=== PATIENT | female | born 1935 | race Caucasian/White ===

== ENCOUNTER 2019-04-22 16:56 | Emergency (ER) | payer MEDICARE, OTHER ==
[2019-04-22] MEDS ORDERED: LORazepam 2 MG/ML SDV IVPUSH ONE (17:24)
[2019-04-22] MEDS ORDERED: Sodium Chloride 0.9% 10 ML Syringe FLUSH PRN (17:24)
--- NOTE | 2019-04-22 17:47 | EDM.PDOC ---
ED HPI GENERAL MEDICAL PROBLEM - General Chief Complaint: Upper Extremity Injury/Pain Stated Complaint: FALL Time Seen by Provider: 04/22/19 17:10 Source of Information: Reports: Patient History Limitations: Reports: No Limitations - History of Present Illness INITIAL COMMENTS - FREE TEXT/NARRATIVE: 84 YO WF presents to ER after trip and fall today while coming out of [employer]. Pt reports she caught her foot on threshold of door and stumbled falling forward. Pt reports putting her right arm out to break her fall and complains of right shoulder and upper arm pain. Pt fell and struck her face on the ground. Pt complaining of pain to nose with mild controlled epistasis. Pt denies any head or neck pain. Pt denies any facial pain other than her nose which she states feels swollen. Pt denies any loss of consciousness, no shortness of breath, no chest pain and no nausea/vomiting or diaphoresis. Onset: Today Location: Reports: Face, Upper Extremity, Right Quality: Reports: Ache Severity: Moderate Improves with: Reports: Rest Worsens with: Reports: Movement Associated Symptoms: Reports: No Other Symptoms. Denies: Diaphoresis, Headaches , Nausea/Vomiting, Shortness of Breath, Weakness right arm Pain Score (Numeric/FACES): 5 - Related Data Allergies Allergy/AdvReac Type Severity Reaction Status Date / Time Penicillins Allergy Rash Verified 04/22/19 17:23 Sulfa (Sulfonamide Allergy Nausea Verified 04/22/19 17:23 Antibiotics) Home Meds: Home Meds Dipyridamole 75 mg PO DAILY 04/22/19 [History] Levothyroxine Sodium [Synthroid] 25 mcg PO ACBREAKFAST 04/22/19 [History] Lisinopril [Zestril] 40 mg PO DAILY 04/22/19 [History] Metoprolol Tartrate [Lopressor] 50 mg PO BID 04/22/19 [History] Mirtazapine 15 mg PO BEDTIME 04/22/19 [History] atorvaSTATin Calcium [Atorvastatin Calcium] 10 mg PO DAILY 04/22/19 [History] traMADol [Ultram] 50 mg PO Q6H PRN 04/22/19 [History] Review of Systems - Review of Systems Review Of Systems: See Below Constitutional: Reports: No Symptoms Eyes: Reports: No Symptoms Ears: Reports: No Symptoms Nose: Reports: Epistaxis, Pain. Denies: Clots Mouth/Throat: Reports: No Symptoms Respiratory: Reports: No Symptoms Cardiovascular: Reports: No Symptoms GI/Abdominal: Reports: No Symptoms Genitourinary: Reports: No Symptoms Musculoskeletal: Reports: Shoulder Pain Skin: Reports: No Symptoms Neurological: Reports: No Symptoms Psychiatric: Reports: No Symptoms ED EXAM, GENERAL - Physical Exam Exam: See Below Exam Limited By: No Limitations General Appearance: Alert, WD/WN, No Apparent Distress Eye Exam: Bilateral Eye: EOMI, PERRL Ears: Normal External Exam, Normal Canal, Hearing Grossly Normal, Normal TMs Ear Exam: Bilateral Ear: Auricle Normal, Canal Normal, TM normal Nose: Normal Mucosa, Other (dried blood in nares without evidence of a septal hematoma) Throat/Mouth: Normal Inspection, Normal Lips, Normal Teeth, Normal Gums, Normal Oropharynx, Normal Voice, No Airway Compromise Head: Atraumatic, Normocephalic Neck: Normal Inspection, Supple, Non-Tender, Full Range of Motion Respiratory/Chest: No Respiratory Distress, Lungs Clear, Normal Breath Sounds, No Accessory Muscle Use, Chest Non-Tender Cardiovascular: Normal Peripheral Pulses, Regular Rate, Rhythm, No Edema, No Gallop, No JVD, No Murmur, No Rub GI/Abdominal: Normal Bowel Sounds, Soft, Non-Tender, No Organomegaly, No Distention, No Abnormal Bruit, No Mass Back Exam: Normal Inspection, Full Range of Motion, NT Extremities: No Pedal Edema, Normal Capillary Refill, Limited Range of Motion, Other (pain with PROM. Swelling to right humeral head) Neurological: Alert, Oriented, CN II-XII Intact, Normal Cognition, Normal Gait, Normal Reflexes, No Motor/Sensory Deficits Psychiatric: Normal Affect, Normal Mood Skin Exam: Warm, Dry, Intact, Normal Color, No Rash Lymphatic: No Adenopathy Course - Vital Signs Last Recorded V/S: Last Vital Signs Temp 36.5 C 04/22/19 17:00 Pulse 88 04/22/19 17:00 Resp 16 04/22/19 17:00 BP 162/76 H 04/22/19 18:10 Pulse Ox 95 04/22/19 17:00 - Orders/Labs/Meds Orders: Active Orders 24 hr Category Date Time Status Peripheral IV Care [RC] . DIRECTED Care 04/22/19 17:24 Active Splinting [RC] ASDIRECTED Care 04/22/19 18:24 Ordered Shoulder 1V Rt [CR] Stat Exams 04/22/19 17:24 Ordered Sodium Chloride 0.9% [Saline Flush] Med 04/22/19 17:24 Active 10 ml FLUSH Q8HR PRN Peripheral IV Insertion Adult [OM.PC] Routine Oth 04/22/19 17:24 Ordered Medication Orders Sodium Chloride (Saline Flush) 10 ml FLUSH Q8HR PRN PRN Reason: keep vein open Meds: Medications Generic Name Dose Route Start Last Admin Trade Name Freq PRN Reason Stop Dose Admin Sodium Chloride 10 ml 04/22/19 17:24 Saline Flush FLUSH Q8HR PRN keep vein open Discontinued Medications Generic Name Dose Route Start Last Admin Trade Name Freq PRN Reason Stop Dose Admin Ketorolac Tromethamine 30 mg 04/22/19 18:11 04/22/19 18:16 Toradol IVPUSH 04/22/19 18:12 30 mg ONETIME ONE Administration Lorazepam 1 mg 04/22/19 17:24 04/22/19 18:16 Ativan IVPUSH 04/22/19 17:25 Not Given ONETIME ONE - Radiology Interpretation Free Text/Narrative:: nasal bone- minimally depressed nasal bone fracture right shoulder/humerus- humeral neck fracture without evidence of dislocation Departure - Departure Time of Disposition: 18:41 Disposition: Home, Self-Care 01 Condition: Good Clinical Impression: Fracture of humerus Qualifiers: Encounter type: initial encounter Humerus Location: surgical neck Fracture type : closed Laterality: right Nasal bone fracture Qualifiers: Encounter type: initial encounter Fracture type: closed Qualified Code(s): S02.2XXA - Fracture of nasal bones, initial encounter for closed fracture - Discharge Information Instructions: Humerus Fracture Treated With Immobilization, Nasal Fracture, Pain Medicine Instructions, [id number] Referrals: Warren Hernandez [Ordering Only Provider] - Dee Jordan PA-C [Primary Care Provider] - Forms: ED Department Discharge Additional Instructions: 1. Discharge home 2. Discussed with Dr Hernandez-Ortho who recommended a sling and follow up with PCP or ortho next 2 weeks and repeat x-ray in 6 weeks- nonsurgical fracture. 3. tramadol 50mg every 6 hours as needed for pain 4. Tylenol 1g every 6 hours as needed for pain 5. ice/Afrin nasal spray 2 sprays each nostril twice/day x 3 days only 6. return to ER for worsening symptoms 7. take arm out of sling 3x/day for elbow and wrist range of motion Sepsis Event Note - Evaluation Sepsis Screening Result: No Definite Risk - Focused Exam Vital Signs: Vital Signs Temp Pulse Resp BP Pulse Ox 04/22/19 18:10 162/76 H 04/22/19 17:00 36.5 C 88 16 219/99 H 95 Date Exam was Performed: 04/22/19 Time Exam was Performed: 18:38 - My Orders Last 24 Hours: My Active Orders 04/22/19 17:24 Peripheral IV Care [RC] . DIRECTED Shoulder 1V Rt [CR] Stat Sodium Chloride 0.9% [Saline Flush] 10 ml FLUSH Q8HR PRN Peripheral IV Insertion Adult [OM.PC] Routine 04/22/19 18:24 Splinting [RC] ASDIRECTED - Assessment/Plan Last 24 Hours: My Active Orders 04/22/19 17:24 Peripheral IV Care [RC] . DIRECTED Shoulder 1V Rt [CR] Stat Sodium Chloride 0.9% [Saline Flush] 10 ml FLUSH Q8HR PRN Peripheral IV Insertion Adult [OM.PC] Routine 04/22/19 18:24 Splinting [RC] ASDIRECTED Assessment:: 1. right humeral neck fracture 2. minimally depressed nasal bone fracture Plan: 1. Discharge home 2. Discussed with Dr Hernandez-Ortho who recommended a sling and follow up with PCP or ortho next 2 weeks and repeat x-ray in 6 weeks- nonsurgical fracture. 3. tramadol 50mg every 6 hours as needed for pain 4. Tylenol 1g every 6 hours as needed for pain 5. ice/Afrin nasal spray 2 sprays each nostril twice/day x 3 days only 6. return to ER for worsening symptoms 7. take arm out of sling 3x/day for elbow and wrist range of motion
[2019-04-22] MEDS ORDERED: Ketorolac 30 MG/ML SDV IVPUSH ONE (18:11)
--- NOTE | 2019-04-22 18:26 | CR ---
[id number] RAD/RAD Nasal Bones EXAM: RAD Nasal Bones INDICATION: FALL COMPARISON: None. FINDINGS: Acute bilateral nondisplaced nasal bone fractures are suggested. IMPRESSION: 1. Acute nondisplaced bilateral nasal bone fractures. Tonio Dye MD 04/22/19 [id number] Thank you for allowing us to participate in the care of your patient.
--- NOTE | 2019-04-22 18:28 | CR ---
[id number] RAD/RAD Humerus Right 2V; [id number] RAD/RAD Shoulder Right 1V EXAM: RIGHT HUMERUS 2 VIEWS, RIGHT SHOULDER ONE VIEW INDICATION: FALL COMPARISON: None. DISCUSSION: There is an acute impacted and displaced fracture involving the surgical neck of the humerus with up to 13 mm anteromedial displacement of the shaft relative to the humeral head. Moderate acromioclavicular osteoarthritis. No dislocation or other osseous abnormality is identified. IMPRESSION: 1. Acute impacted and displaced surgical neck fracture of the proximal humerus. Tonio Dye MD 04/22/19 [id number] Thank you for allowing us to participate in the care of your patient.
[2019-04-22] MEDS ORDERED: Oxymetazoline 0.05% Nasal Spray 15 ML Bottle NAS ONE (18:40)
== END 2019-04-22 19:10 | disposition home or self-care (01) ==
LOC: KA.ED 16:56
DX: S02.2XXA Fracture of nasal bones, initial encounter for closed fracture (principal); S42.211A Unspecified displaced fracture of surgical neck of right humerus, initial encounter for closed fracture; Z88.0 Allergy status to penicillin; Z88.2 Allergy status to sulfonamides; Z79.899 Other long term (current) drug therapy; W01.0XXA Fall on same level from slipping, tripping and stumbling without subsequent striking against object, initial encounter; Y92.512 Supermarket, store or market as the place of occurrence of the external cause
CPT/HCPCS: 70160; 73020-RT; 73060-RT; 96374; 99283; 99283-25; A9270-GY; J1885